=== PATIENT | male | born 1935 | race Caucasian/White ===

== ENCOUNTER 2018-04-03 17:31 | Inpatient (IN) | payer MEDICARE, OTHER ==
[~2018-04-03] VITALS: Ht 185.4 cm; Wt 76.5 kg
[2018-04-03] MEDS ORDERED: METO25 PO (19:04)
[2018-04-03] MEDS ORDERED: CLOP75 PO (19:04)
[2018-04-03] MEDS ORDERED: FAMO20 PO (19:04)
[2018-04-03] MEDS ORDERED: ESCI20TA PO (19:04)
[2018-04-03] MEDS ORDERED: VITAD1000 PO (19:04)
[2018-04-03] MEDS ORDERED: AMLO-511 PO (19:04)
[2018-04-03] MEDS ORDERED: FOLI1 PO (19:04)
[2018-04-03] MEDS ORDERED: BENA20 PO (19:06)
[2018-04-03] MEDS ORDERED: BUPR-47 PO (19:06)
[2018-04-03] MEDS ORDERED: ASPI-1182 PO (19:06)
[2018-04-03 19:28] LABS: BASOPHILS % (AUTO) 1.1 % (0.0-2.0); EOSINOPHILS % (AUTO) 3.2 % (1.0-6.0); HEMATOCRIT 36.9 % (41-53); HEMOGLOBIN 12.7 g/dL (13.5-17.5); LYMPHOCYTES # (AUTO) 1.7 K/uL (1.0-4.8); LYMPHOCYTES % (AUTO) 29.3 % (22.0-44.0); MEAN CORPUSCULAR HEMOGLOBIN 29.8 pg (26.0-34.0); MEAN CORPUSCULAR HGB CONC 34.4 G/dL (31.0-37.0); MEAN CORPUSCULAR VOLUME 87 fL (80-100); MONOCYTES # (AUTO) 0.6 K/uL (0.1-1.0); MONOCYTES % (AUTO) 10.3 % (2.0-9.0); NEUTROPHILS # (AUTO) 3.3 K/uL (1.8-7.7); NEUTROPHILS % (AUTO) 56.1 % (40.0-70.0); PLATELET COUNT (AUTO) 285 K/uL (150-450); RED BLOOD CELL COUNT(AUTO) 4.27 MIL/uL (4.50-5.90); RED CELL DISTRIBUTION WIDTH 13.8 % (11.5-14.5)
[2018-04-03 19:38] LABS: ANION GAP 8 mmol/L (8-16); CARBON DIOXIDE 27 mmol/L (22-29); CHLORIDE 99 mmol/L (98-107); GLOMERULAR FILTR. RATE CALC > 60 mL/min (>60); GLUCOSE,RANDOM 113 mg/dL (70-110); SODIUM SERUM 134 mmol/L (136-145); UREA NITROGEN, BLOOD 16 mg/dL (7-18)
[2018-04-03 19:43] LABS: ALANINE AMINOTRANSFERASE 13 U/L (12-78); ALBUMIN 3.7 g/dL (3.4-5.0); ALKALINE PHOSPHATASE 65 U/L (46-116); ASPARTATE AMINOTRANSFERASE 10 U/L (15-37); BILIRUBIN,TOTAL 0.6 mg/dL (0.1-1.0); TOTAL PROTEIN, SERUM 6.9 g/dL (6.4-8.2)
[2018-04-04] VITALS (8 sets, daily range): BP systolic 101–126; BP diastolic 51–62
[2018-04-04] MEDS ORDERED: MAGNESIUM HYDROXIDE SUSPENSION 30 ML UDCUP PO PRN (00:30)
[2018-04-04] MEDS ORDERED: BISACODYL 10 MG RECTAL RECTAL SUPPOSITORY PR PRN (00:30)
[2018-04-04] MEDS ORDERED: ZOLPIDEM TARTRATE 5 MG TABLET PO PRN (00:30)
[2018-04-04] MEDS ORDERED: ACETAMINOPHEN 325 MG TABLET PO PRN (00:30)
[2018-04-04] MEDS ORDERED: ALBUTEROL SULFATE 2.5 MG/0.5 ML NEB SOLUTION NEB PRN (00:30)
[2018-04-04] MEDS ORDERED: ONDANSETRON HCL 4 MG/2 ML VIAL IVP PRN (00:30)
[2018-04-04] MEDS ORDERED: IPRATROPIUM BROMIDE 0.5 MG/2.5 ML NEB SOLUTION NEB PRN (00:30)
[2018-04-04] MEDS ORDERED: PNEUMOCOCCAL VACCINE POLYVALENT 0.5 ML VIAL [PPSV23] IM ONE (05:30)
[2018-04-04] MEDS: PANTOPRAZOLE SODIUM 40 MG DR TABLET PO SCH (09:00)
[2018-04-04] MEDS: FAMOTIDINE 20 MG TABLET PO SCH ×2 (09:03→20:28)
[2018-04-04] MEDS: BuPROPion HCL XL 150 MG ER TABLET PO SCH (09:03)
[2018-04-04] MEDS: FOLIC ACID 1 MG TABLET PO SCH (09:03)
[2018-04-04] MEDS: METOPROLOL TARTRATE 25 MG TABLET PO SCH (09:03)
[2018-04-04] MEDS: CLOPIDOGREL BISULFATE 75 MG TABLET PO SCH (09:03)
[2018-04-04] MEDS: CHOLECALCIFEROL (VIT D3) 1,000 UNITS TABLET PO SCH (09:03)
[2018-04-04] MEDS: ASPIRIN 81 MG EC TABLET PO SCH (09:03)
[2018-04-04] MEDS: AmLODIPine BESYLATE 5 MG TABLET PO SCH (09:03)
[2018-04-04] MEDS: ESCITALOPRAM OXALATE 20 MG TABLET PO SCH (09:03)
[2018-04-04] MEDS: BENAZEPRIL HCL 20 MG TABLET PO SCH (10:27)
[2018-04-04 12:44] LABS: APPEARANCE,URINE TURBID (CLEAR); BILIRUBIN,URINE NEGATIVE (NEGATIVE); GLUCOSE, URINE (UA) NEGATIVE (NEGATIVE); KETONES,URINE NEGATIVE (NEGATIVE); LEUKOCYTE ESTERASE ,URINE MODERATE (NEGATIVE); NITRATE,URINE POSITIVE (NEGATIVE); OCCULT BLOOD,URINE MODERATE (NEGATIVE); PROTEIN,URINE SEE CONFIRM (NEGATIVE); UROBILINOGEN,URINE 0.2 mg/dL (<=1.0)
[2018-04-04 13:03] LABS: SULFOSALICYLIC ACID,URINE 1+ (Negative)
[2018-04-04 13:06] LABS: BACTERIA,URINE Many /HPF (None Seen); SQUAMOUS EPITHELIAL CELL,UR Rare /LPF (None Seen); WBC,URINE Full Field /HPF (0-5)
[2018-04-04] MEDS: CefTRIAXone SODIUM 1 GM in DEXTROSE 5%-WATER 10 ML IV SCH (15:33)
[2018-04-05] VITALS (7 sets, daily range): BP systolic 97–122; BP diastolic 57–69
[2018-04-05] MEDS: FOLIC ACID 1 MG TABLET PO SCH (08:29)
[2018-04-05] MEDS: AmLODIPine BESYLATE 5 MG TABLET PO SCH (08:29)
[2018-04-05] MEDS: ASPIRIN 81 MG EC TABLET PO SCH (08:29)
[2018-04-05] MEDS: CLOPIDOGREL BISULFATE 75 MG TABLET PO SCH (08:29)
[2018-04-05] MEDS: BuPROPion HCL XL 150 MG ER TABLET PO SCH (08:30)
[2018-04-05] MEDS: CHOLECALCIFEROL (VIT D3) 1,000 UNITS TABLET PO SCH (08:30)
[2018-04-05] MEDS: ESCITALOPRAM OXALATE 20 MG TABLET PO SCH (08:30)
[2018-04-05] MEDS: METOPROLOL TARTRATE 25 MG TABLET PO SCH (08:30)
[2018-04-05] MEDS: FAMOTIDINE 20 MG TABLET PO SCH ×2 (08:31→19:47)
[2018-04-05] MEDS: PANTOPRAZOLE SODIUM 40 MG DR TABLET PO SCH (08:37)
[2018-04-05] MEDS: BENAZEPRIL HCL 20 MG TABLET PO SCH (09:00)
[2018-04-05] MEDS: CefTRIAXone SODIUM 1 GM in DEXTROSE 5%-WATER 10 ML IV SCH (15:23)
[2018-04-06] VITALS (7 sets, daily range): BP systolic 111–169; BP diastolic 54–88
[2018-04-06] MEDS: BENAZEPRIL HCL 20 MG TABLET PO SCH (08:29)
[2018-04-06] MEDS: CHOLECALCIFEROL (VIT D3) 1,000 UNITS TABLET PO SCH (08:29)
[2018-04-06] MEDS: CLOPIDOGREL BISULFATE 75 MG TABLET PO SCH (08:29)
[2018-04-06] MEDS: ASPIRIN 81 MG EC TABLET PO SCH (08:29)
[2018-04-06] MEDS: ESCITALOPRAM OXALATE 20 MG TABLET PO SCH (08:30)
[2018-04-06] MEDS: AmLODIPine BESYLATE 5 MG TABLET PO SCH (08:30)
[2018-04-06] MEDS: METOPROLOL TARTRATE 25 MG TABLET PO SCH (08:30)
[2018-04-06] MEDS: BuPROPion HCL XL 150 MG ER TABLET PO SCH (08:30)
[2018-04-06] MEDS: PANTOPRAZOLE SODIUM 40 MG DR TABLET PO SCH (08:30)
[2018-04-06] MEDS: FAMOTIDINE 20 MG TABLET PO SCH ×2 (08:30→19:47)
[2018-04-06] MEDS: FOLIC ACID 1 MG TABLET PO SCH (08:34)
[2018-04-06] MEDS: CefTRIAXone SODIUM 1 GM in DEXTROSE 5%-WATER 10 ML IV SCH (15:30)
[2018-04-07] VITALS (7 sets, daily range): BP systolic 101–132; BP diastolic 63–73
[2018-04-07 06:18] LABS: BASOPHILS % (AUTO) 1.3 % (0.0-2.0); EOSINOPHILS % (AUTO) 4.2 % (1.0-6.0); HEMATOCRIT 36.4 % (41-53); HEMOGLOBIN 12.9 g/dL (13.5-17.5); LYMPHOCYTES # (AUTO) 2.1 K/uL (1.0-4.8); LYMPHOCYTES % (AUTO) 33.1 % (22.0-44.0); MEAN CORPUSCULAR HEMOGLOBIN 30.1 pg (26.0-34.0); MEAN CORPUSCULAR HGB CONC 35.5 G/dL (31.0-37.0); MEAN CORPUSCULAR VOLUME 85 fL (80-100); MONOCYTES # (AUTO) 0.6 K/uL (0.1-1.0); MONOCYTES % (AUTO) 9.1 % (2.0-9.0); NEUTROPHILS # (AUTO) 3.3 K/uL (1.8-7.7); NEUTROPHILS % (AUTO) 52.3 % (40.0-70.0); PLATELET COUNT (AUTO) 287 K/uL (150-450); RED CELL DISTRIBUTION WIDTH 13.7 % (11.5-14.5)
[2018-04-07 06:35] LABS: ANION GAP 8 mmol/L (8-16); CALCIUM, TOTAL 8.6 mg/dL (8.8-10.5); CARBON DIOXIDE 26 mmol/L (22-29); CHLORIDE 99 mmol/L (98-107); CREATININE 0.83 mg/dL (0.60-1.30); GLUCOSE,RANDOM 95 mg/dL (70-110); POTASSIUM 4.1 mmol/L (3.5-5.1); SODIUM SERUM 133 mmol/L (136-145); UREA NITROGEN, BLOOD 11 mg/dL (7-18)
[2018-04-07 06:52] LABS: GLOMERULAR FILTR. RATE CALC > 60 mL/min (>60)
[2018-04-07] MEDS: PANTOPRAZOLE SODIUM 40 MG DR TABLET PO SCH (07:56)
[2018-04-07] MEDS: METOPROLOL TARTRATE 25 MG TABLET PO SCH (07:56)
[2018-04-07] MEDS: BENAZEPRIL HCL 20 MG TABLET PO SCH (07:57)
[2018-04-07] MEDS: BuPROPion HCL XL 150 MG ER TABLET PO SCH (08:00)
[2018-04-07] MEDS: FOLIC ACID 1 MG TABLET PO SCH (08:00)
[2018-04-07] MEDS: ESCITALOPRAM OXALATE 20 MG TABLET PO SCH (08:00)
[2018-04-07] MEDS: AmLODIPine BESYLATE 5 MG TABLET PO SCH (08:00)
[2018-04-07] MEDS: ASPIRIN 81 MG EC TABLET PO SCH (08:00)
[2018-04-07] MEDS: CLOPIDOGREL BISULFATE 75 MG TABLET PO SCH (08:00)
[2018-04-07] MEDS: CHOLECALCIFEROL (VIT D3) 1,000 UNITS TABLET PO SCH (08:01)
[2018-04-07] MEDS: FAMOTIDINE 20 MG TABLET PO SCH ×2 (09:00→20:29)
[2018-04-07] MEDS: CefTRIAXone SODIUM 1 GM in DEXTROSE 5%-WATER 10 ML IV SCH (14:49)
[2018-04-07] MEDS ORDERED: LEVO500 PO (15:15)
[2018-04-07] MEDS: LEVOFLOXACIN 500 MG TABLET PO SCH (15:43)
[2018-04-08 04:36] VITALS: BP 124/67
[2018-04-08 07:40] VITALS: BP 112/69
[2018-04-08] MEDS: BENAZEPRIL HCL 20 MG TABLET PO SCH (08:22)
[2018-04-08] MEDS: BuPROPion HCL XL 150 MG ER TABLET PO SCH (08:22)
[2018-04-08] MEDS: CLOPIDOGREL BISULFATE 75 MG TABLET PO SCH (08:23)
[2018-04-08] MEDS: FOLIC ACID 1 MG TABLET PO SCH (08:23)
[2018-04-08] MEDS: AmLODIPine BESYLATE 5 MG TABLET PO SCH (08:23)
[2018-04-08] MEDS: PANTOPRAZOLE SODIUM 40 MG DR TABLET PO SCH (08:23)
[2018-04-08] MEDS: LEVOFLOXACIN 500 MG TABLET PO SCH (08:23)
[2018-04-08] MEDS: FAMOTIDINE 20 MG TABLET PO SCH ×2 (08:23→20:05)
[2018-04-08] MEDS: METOPROLOL TARTRATE 25 MG TABLET PO SCH (08:23)
[2018-04-08] MEDS: ASPIRIN 81 MG EC TABLET PO SCH (08:23)
[2018-04-08] MEDS: CHOLECALCIFEROL (VIT D3) 1,000 UNITS TABLET PO SCH (08:23)
[2018-04-08] MEDS: ESCITALOPRAM OXALATE 20 MG TABLET PO SCH (08:23)
[2018-04-08 11:42] VITALS: BP 108/58
[2018-04-08 15:37] VITALS: BP 120/75
[2018-04-08 19:27] VITALS: BP 132/68
[2018-04-08 23:15] VITALS: BP 122/68
[2018-04-09 07:40] VITALS: BP 123/70
[2018-04-09] MEDS: FOLIC ACID 1 MG TABLET PO SCH (08:42)
[2018-04-09] MEDS: ASPIRIN 81 MG EC TABLET PO SCH (08:42)
[2018-04-09] MEDS: PANTOPRAZOLE SODIUM 40 MG DR TABLET PO SCH (08:42)
[2018-04-09] MEDS: METOPROLOL TARTRATE 25 MG TABLET PO SCH (08:42)
[2018-04-09] MEDS: FAMOTIDINE 20 MG TABLET PO SCH (08:42)
[2018-04-09] MEDS: LEVOFLOXACIN 500 MG TABLET PO SCH (08:42)
[2018-04-09] MEDS: AmLODIPine BESYLATE 5 MG TABLET PO SCH (08:42)
[2018-04-09] MEDS: CLOPIDOGREL BISULFATE 75 MG TABLET PO SCH (08:42)
[2018-04-09] MEDS: ESCITALOPRAM OXALATE 20 MG TABLET PO SCH (08:42)
[2018-04-09] MEDS: BENAZEPRIL HCL 20 MG TABLET PO SCH (08:43)
[2018-04-09] MEDS: BuPROPion HCL XL 150 MG ER TABLET PO SCH (08:43)
[2018-04-09] MEDS: CHOLECALCIFEROL (VIT D3) 1,000 UNITS TABLET PO SCH (08:43)
[2018-04-09 12:29] VITALS: BP 102/59
[2018-04-09 15:46] VITALS: BP 106/59
== END 2018-04-09 16:20 | disposition home or self-care (01) | DRG 690 ==
LOC: EMS 17:32 → 5S 22:00 → 6N 04-07 18:40
PROVIDERS: ADMIT Internal Medicine; ATTEND Internal Medicine
DX: N39.0 Urinary tract infection, site not specified (principal); M19.90 Unspecified osteoarthritis, unspecified site; F41.8 Other specified anxiety disorders; K21.9 Gastro-esophageal reflux disease without esophagitis; I10 Essential (primary) hypertension; M47.9 Spondylosis, unspecified; Z79.82 Long term (current) use of aspirin; Z79.899 Other long term (current) drug therapy; Z99.3 Dependence on wheelchair; Z85.038 Personal history of other malignant neoplasm of large intestine; Z93.3 Colostomy status
CPT/HCPCS: 83735; 87086; 99285; J0696; J7060

== ENCOUNTER 2018-11-07 05:58 | Emergency (ER) | payer MEDICARE, OTHER ==
[~2018-11-07] VITALS: Ht 185.4 cm; Wt 75.0 kg
[~2018-11-07 05:58] MED LIST: AMLO-511 PO; ASPI-1182 PO; BENA20 PO; BUPR-47 PO; CLOP75TA3 PO; ESCI20TA PO; FAMO20 PO; FOLI1 PO; LEVO500 PO; METO25 PO; VITAD1000 PO
[2018-11-07] MEDS ORDERED: METO-391 PO (06:12)
[2018-11-07] MEDS ORDERED: ONDANSETRON HCL 4 MG/2 ML VIAL IVP ONE (07:00)
[2018-11-07] MEDS ORDERED: SODIUM CHLORIDE 0.9% 1,000 ML IV ONE (07:00)
[2018-11-07 07:17] LABS: BASOPHILS % (AUTO) 1.2 % (0.0-2.0); EOSINOPHILS % (AUTO) 3.9 % (1.0-6.0); HEMOGLOBIN 13.2 g/dL (13.5-17.5); LYMPHOCYTES # (AUTO) 1.6 K/uL (1.0-4.8); LYMPHOCYTES % (AUTO) 21.4 % (22.0-44.0); MEAN CORPUSCULAR HEMOGLOBIN 29.7 pg (26.0-34.0); MEAN CORPUSCULAR HGB CONC 33.8 G/dL (31.0-37.0); MEAN CORPUSCULAR VOLUME 88 fL (80-100); MONOCYTES # (AUTO) 0.8 K/uL (0.1-1.0); MONOCYTES % (AUTO) 10.3 % (2.0-9.0); NEUTROPHILS # (AUTO) 4.6 K/uL (1.8-7.7); NEUTROPHILS % (AUTO) 63.2 % (40.0-70.0); PLATELET COUNT (AUTO) 327 K/uL (150-450); RED BLOOD CELL COUNT(AUTO) 4.44 MIL/uL (4.50-5.90); RED CELL DISTRIBUTION WIDTH 13.6 % (11.5-14.5)
[2018-11-07 07:26] LABS: ANION GAP 9 mmol/L (8-16); CALCIUM, TOTAL 9.2 mg/dL (8.8-10.5); CARBON DIOXIDE 30 mmol/L (22-29); CHLORIDE 100 mmol/L (98-107); CREATININE 1.02 mg/dL (0.60-1.30); GLUCOSE,RANDOM 78 mg/dL (70-110); POTASSIUM 3.4 mmol/L (3.5-5.1); SODIUM SERUM 139 mmol/L (136-145); UREA NITROGEN, BLOOD 10 mg/dL (7-18)
[2018-11-07 07:32] LABS: ALANINE AMINOTRANSFERASE 16 U/L (12-78); ALBUMIN 3.4 g/dL (3.4-5.0); ALKALINE PHOSPHATASE 77 U/L (46-116); ASPARTATE AMINOTRANSFERASE 11 U/L (15-37); BILIRUBIN,TOTAL 0.5 mg/dL (0.1-1.0); GLOMERULAR FILTR. RATE CALC > 60 mL/min (>60); LIPASE 149 U/L (73-393); TOTAL PROTEIN, SERUM 6.9 g/dL (6.4-8.2)
[2018-11-07 09:36] LABS: APPEARANCE,URINE CLOUDY (CLEAR); BILIRUBIN,URINE NEGATIVE (NEGATIVE); GLUCOSE, URINE (UA) NEGATIVE (NEGATIVE); KETONES,URINE NEGATIVE (NEGATIVE); LEUKOCYTE ESTERASE ,URINE LARGE (NEGATIVE); NITRATE,URINE NEGATIVE (NEGATIVE); OCCULT BLOOD,URINE SMALL (NEGATIVE); PROTEIN,URINE NEGATIVE (NEGATIVE)
[2018-11-07 09:46] LABS: BACTERIA,URINE Many /HPF (None Seen); WBC,URINE 51-100 /HPF (0-5)
[2018-11-07] MEDS ORDERED: CefTRIAXone 1 GM/DEXTROSE 50 ML IV ONE (10:00)
[2018-11-07 10:20] VITALS: BP 136/71
== END 2018-11-07 11:10 | disposition home or self-care (01) ==
LOC: EMS 05:58
DX: N39.0 Urinary tract infection, site not specified (principal); Z93.3 Colostomy status; Z79.82 Long term (current) use of aspirin; Z85.038 Personal history of other malignant neoplasm of large intestine
CPT/HCPCS: 36415; 51701; 71045; 80053; 81001; 83690; 84484; 85025; 87077; 87086; 93005; 96365; 96375; 99285; J0696; J2405; J7030; 96374